=== PATIENT | male | born 1935 | race Caucasian/White ===

== ENCOUNTER 2017-12-30 17:00 | Inpatient (IN) | payer MEDICARE, OTHER ==
[2017-12-30] VITALS (201 sets, daily range): BP systolic 172; BP diastolic 80; PULSE 96; TEMP 98.3; O2SAT 86–100
[~2017-12-30] VITALS: Ht 170.2 cm; Wt 99.5 kg
[2017-12-30 17:43] LABS: BASO % 0.1 % (0.0-2.0); GRAN % 87.4 % (42.2-75.2); HEMATOCRIT 41.2 % (42.0-52.0); HEMOGLOBIN 13.6 g/dl (13.5-18.0); LYMPH # 0.8 (1.2-3.4); LYMPH % 4.9 % (20.0-51.0); MEAN CELL VOLUME 92 fl (80.0-100.0); MEAN CORPUSCULAR HEMOGLOBIN 30 pg (27.0-31.0); MEAN CORPUSCULAR HGB CONC 33 g/dl (33.0-37.0); MEAN PLATELET VOLUME 11.5 fl (7.4-10.4); MONO # 1.2 (0.1-0.6); MONO % 7.1 % (1.7-9.3); PLATELET COUNT 183 K/mm3 (130-400); RED BLOOD COUNT 4.47 M/mm3 (4.20-5.60); REDCELL DISTRIBUTION WIDTH-CV 13.3 % (11.5-14.5)
[2017-12-30] MEDS ORDERED: ZESTRIL 20MG TA20 MG PO (17:53)
[2017-12-30] MEDS ORDERED: GLUCOPHAGE500 MG/TAB PO (17:54)
[2017-12-30 17:56] LABS: ALBUMIN 3.7 gm/dL (3.5-5.0); BILIRUBIN,TOTAL 1.2 mg/dL (0.0-1.0); CREATININE, serum 2.29 mg/dL (0.66-1.25); POTASSIUM 3.9 mmol/L (3.4-5.0); TOTAL PROTEIN 7.6 gm/dL (6.4-8.2)
[2017-12-30 18:09] LABS: TROPONIN-I 0.075 ng/mL (0.000-0.034)
[2017-12-30 18:59] LABS: COLLECTION METHOD CATHETER
[2017-12-30 19:08] LABS: AMORPHOUS CRYSTAL Present /uL; MUCOUS Present /lpf; PH 5 (5-8); URINE APPEARANCE Turbid; URINE BACTERIA None Seen /hpf; URINE BILIRUBIN Negative (NEGATIVE); URINE BLOOD 3+ (NEGATIVE); URINE COLOR Amber; URINE GLUCOSE Negative (NEGATIVE); URINE KETONE Negative (NEGATIVE); URINE LEUKOCYTE ESTERASE Trace (NEGATIVE); URINE NITRATE Negative (NEGATIVE); URINE PROTEIN(semi-quant) 2+ (NEGATIVE); URINE UROBILINOGEN Negative (NEGATIVE)
[2017-12-30 19:13] LABS: ARTERIAL BLD GAS O2 SATURATION 88.7 % (92-100); ARTERIAL BLD GAS TCO2 CT 20.6; ARTERIAL BLOOD GAS HCO3 19.7 meq/L (22-26); ARTERIAL BLOOD GAS PCO2 29.2 mmHg (35-45); ARTERIAL BLOOD GAS PO2 54.6 mmHg (80-100); ARTERIAL BLOOD GAS pH 7.45 (7.35-7.45)
[2017-12-30 20:26] LABS: TSH w REFLEX 0.518 uIU/mL (0.465-4.680)
[2017-12-30] MEDS ORDERED: NEURONTIN100 MG/CAP PO (21:30)
[2017-12-30] MEDS ORDERED: PROSCAR 5MG5 MG PO (21:30)
[2017-12-30] MEDS ORDERED: ZOCOR 20MG20 MG PO (21:31)
[2017-12-30] MEDS ORDERED: FLOMAX 0.40.4 MG/CAP PO (21:31)
[2017-12-31] VITALS (316 sets, daily range): BP systolic 120–147; BP diastolic 46–77; PULSE 67–90; TEMP 98.8–100.1; O2SAT 91–100
[2017-12-31 00:27] LABS: CALCIUM 8.2 mg/dL (8.4-10.2); CREATININE, serum 1.92 mg/dL (0.66-1.25); MAGNESIUM 2.1 mg/dL (1.6-2.3); POTASSIUM 3.8 mmol/L (3.4-5.0)
[2017-12-31 05:42] LABS: BASO % 0.3 % (0.0-2.0); EOS % 0.1 % (0-4.0); GRAN # 11.1 (1.4-6.5); GRAN % 81.4 % (42.2-75.2); LYMPH # 1.3 (1.2-3.4); LYMPH % 9.3 % (20.0-51.0); MEAN CELL VOLUME 93 fl (80.0-100.0); MEAN CORPUSCULAR HGB CONC 32 g/dl (33.0-37.0); MEAN PLATELET VOLUME 11.3 fl (7.4-10.4); MONO # 1.2 (0.1-0.6); MONO % 8.5 % (1.7-9.3); PLATELET COUNT 163 K/mm3 (130-400); RED BLOOD COUNT 3.65 M/mm3 (4.20-5.60); REDCELL DISTRIBUTION WIDTH-CV 13.4 % (11.5-14.5)
[2017-12-31 05:47] LABS: HEMOGLOBIN 10.9 g/dl (13.5-18.0); MEAN CORPUSCULAR HEMOGLOBIN 30 pg (27.0-31.0)
[2017-12-31 05:56] LABS: ALBUMIN 2.7 gm/dL (3.5-5.0); BILIRUBIN,TOTAL 0.9 mg/dL (0.0-1.0); CALCIUM 7.4 mg/dL (8.4-10.2); CREATININE, serum 1.67 mg/dL (0.66-1.25); POTASSIUM 3.5 mmol/L (3.4-5.0); TOTAL PROTEIN 5.9 gm/dL (6.4-8.2)
[2018-01-01] VITALS (10 sets, daily range): BP systolic 112–149; BP diastolic 49–85; PULSE 56–106; TEMP 98.2–100.1
[2018-01-01 06:41] LABS: BASO % 0.2 % (0.0-2.0); EOS % 0.2 % (0-4.0); GRAN # 8.5 (1.4-6.5); GRAN % 80.7 % (42.2-75.2); HEMOGLOBIN 10.8 g/dl (13.5-18.0); LYMPH # 1.1 (1.2-3.4); LYMPH % 10.1 % (20.0-51.0); MEAN CELL VOLUME 91 fl (80.0-100.0); MEAN CORPUSCULAR HEMOGLOBIN 30 pg (27.0-31.0); MEAN CORPUSCULAR HGB CONC 33 g/dl (33.0-37.0); MEAN PLATELET VOLUME 11.4 fl (7.4-10.4); MONO # 0.9 (0.1-0.6); MONO % 8.4 % (1.7-9.3); PLATELET COUNT 187 K/mm3 (130-400); RED BLOOD COUNT 3.59 M/mm3 (4.20-5.60); REDCELL DISTRIBUTION WIDTH-CV 13.6 % (11.5-14.5)
[2018-01-01 06:46] LABS: HEMATOCRIT 32.6 % (42.0-52.0)
[2018-01-01 06:50] LABS: CREATININE, serum 1.24 mg/dL (0.66-1.25)
[2018-01-02 05:36] VITALS: BP 144/66; PULSE 85; TEMP 98.5
[2018-01-02 07:34] LABS: BASO # 0.1 (0.0-0.2); BASO % 0.6 % (0.0-2.0); EOS # 0.2 (0.0-0.7); EOS % 2.1 % (0-4.0); GRAN # 8.1 (1.4-6.5); GRAN % 76.9 % (42.2-75.2); LYMPH # 1.4 (1.2-3.4); LYMPH % 13.2 % (20.0-51.0); MEAN CELL VOLUME 90 fl (80.0-100.0); MEAN CORPUSCULAR HEMOGLOBIN 30 pg (27.0-31.0); MEAN CORPUSCULAR HGB CONC 33 g/dl (33.0-37.0); MEAN PLATELET VOLUME 11.4 fl (7.4-10.4); MONO # 0.7 (0.1-0.6); MONO % 6.7 % (1.7-9.3); PLATELET COUNT 190 K/mm3 (130-400); RED BLOOD COUNT 3.36 M/mm3 (4.20-5.60)
[2018-01-02 07:42] LABS: HEMATOCRIT 30.3 % (42.0-52.0)
[2018-01-02 08:01] VITALS: BP 146/67; PULSE 55; TEMP 98.2
[2018-01-02 08:52] LABS: CALCIUM 7.3 mg/dL (8.4-10.2); CREATININE, serum 1.1 mg/dL (0.66-1.25); MAGNESIUM 1.8 mg/dL (1.6-2.3)
[2018-01-02 08:54] LABS: POTASSIUM 2.9 mmol/L (3.4-5.0)
[2018-01-02] MEDS ORDERED: OMNICEF 300MG300 MG PO (09:57)
[2018-01-02] MEDS ORDERED: IPRATROPIUM BROM3 M1 IH (09:57)
[2018-01-02] MEDS ORDERED: K-DUR20 MEQ PO (09:58)
[2018-01-02] MEDS ORDERED: MAG-OX 400400 MG/TAB PO (09:58)
[2018-01-02] MEDS ORDERED: SEROQUEL 2525 MG/TAB PO (09:58)
[2018-01-02 11:05] VITALS: BP 151/63; PULSE 75; TEMP 98.5
[2018-01-02] MEDS ORDERED: TUMS500 MG PO (13:47)
[2018-01-02 14:28] VITALS: BP 151/63; PULSE 75; TEMP 98.5
== END 2018-01-02 15:40 | DRG 557 ==
LOC: COL.ER 17:00 → MEDICAL 18:44 → ICU 18:44 → MEDICAL 12-31 05:40
PROVIDERS: Emergency Medicine; Internal Medicine; Nurse Practitioner Family; Physician Assistant
DX: M62.82 Rhabdomyolysis (principal); G93.40 Encephalopathy, unspecified; J96.01 Acute respiratory failure with hypoxia; J18.9 Pneumonia, unspecified organism; N17.9 Acute kidney failure, unspecified; N39.0 Urinary tract infection, site not specified; Z66 Do not resuscitate; F03.90 Unspecified dementia, unspecified severity, without behavioral disturbance, psychotic disturbance, mood disturbance, and anxiety; I10 Essential (primary) hypertension; E78.5 Hyperlipidemia, unspecified; E11.9 Type 2 diabetes mellitus without complications; Z91.81 History of falling; E87.6 Hypokalemia; L89.319 Pressure ulcer of right buttock, unspecified stage; L89.159 Pressure ulcer of sacral region, unspecified stage
CPT/HCPCS: 99223-AI; 99231-AI; 99239; A9284; A9502; J0456; J0696; J1644; J1815; J2543; J7030; J7050

== ENCOUNTER 2018-01-08 16:44 | Emergency (ER) | payer MEDICARE ==
[~2018-01-08] VITALS: Ht 170.2 cm; Wt 90.9 kg
[~2018-01-08 16:44] MED LIST: FLOMAX 0.40.4 MG/CAP PO; GLUCOPHAGE500 MG/TAB PO; IPRATROPIUM BROM3 M1 IH; K-DUR20 MEQ PO; MAG-OX 400400 MG/TAB PO; NEURONTIN100 MG/CAP PO; OMNICEF 300MG300 MG PO; PROSCAR 5MG5 MG PO; SEROQUEL 2525 MG/TAB PO; TUMS500 MG PO; ZESTRIL 20MG TA20 MG PO; ZOCOR 20MG20 MG PO
[2018-01-08 16:49] VITALS: TEMP 97.4
[2018-01-08] MEDS ORDERED: TYLENOL SU650 MG/SUP RC (17:24)
[2018-01-08] MEDS ORDERED: DULCOLAX S10 MG/SUPP RC (17:25)
[2018-01-08] MEDS ORDERED: LASIX 20MG TABL20 MG PO (17:27)
[2018-01-08 17:29] LABS: BASO # 0.1 (0.0-0.2); BASO % 0.6 % (0.0-2.0); EOS # 0.2 (0.0-0.7); EOS % 2.2 % (0-4.0); GRAN # 5.9 (1.4-6.5); GRAN % 65.5 % (42.2-75.2); HEMATOCRIT 39.8 % (42.0-52.0); HEMOGLOBIN 12.7 g/dl (13.5-18.0); MEAN CELL VOLUME 92 fl (80.0-100.0); MEAN CORPUSCULAR HEMOGLOBIN 30 pg (27.0-31.0); MEAN CORPUSCULAR HGB CONC 32 g/dl (33.0-37.0); MEAN PLATELET VOLUME 10.2 fl (7.4-10.4); MONO # 0.7 (0.1-0.6); MONO % 7.6 % (1.7-9.3); PLATELET COUNT 440 K/mm3 (130-400); RED BLOOD COUNT 4.31 M/mm3 (4.20-5.60); REDCELL DISTRIBUTION WIDTH-CV 14.4 % (11.5-14.5)
[2018-01-08] MEDS ORDERED: K-DUR20 MEQ PO (17:30)
[2018-01-08 17:45] LABS: ALANINE AMINOTRANSFERASE 98 U/L (21-72); ALBUMIN 3.3 gm/dL (3.5-5.0); ALKALINE PHOSPHATASE 159 U/L (50-136); ANION GAP 8 mmol/L (7-16); AST,SGOT 53 U/L (15-37); BILIRUBIN,TOTAL 0.5 mg/dL (0.0-1.0); BLOOD UREA NITROGEN 18 mg/dL (9-20); CALCIUM 9.3 mg/dL (8.4-10.2); CARBON DIOXIDE 31 mmol/L (22-30); CHLORIDE 97 mmol/L (98-107); CREATININE, serum 1.29 mg/dL (0.66-1.25); GLUCOSE 122 mg/dL (74-106); POTASSIUM 4.5 mmol/L (3.4-5.0); SODIUM 136 mmol/L (137-145); TOTAL PROTEIN 6.7 gm/dL (6.4-8.2)
[2018-01-08 17:47] LABS: ACETAMINOPHEN < 10 ug/mL (10-30); ALCOHOL(ethanol),MEDICAL < 10 mg/dL; SALICYLATE < 1.0 mg/dL
[2018-01-08 18:19] LABS: COLLECTION METHOD CLEAN CATCH
[2018-01-08 18:24] LABS: PH 7 (5-8); SQUAMOUS EPITHELIAL None Seen /hpf; URINE APPEARANCE Clear; URINE BACTERIA None Seen /hpf; URINE BILIRUBIN Negative (NEGATIVE); URINE BLOOD Negative (NEGATIVE); URINE COLOR Yellow; URINE GLUCOSE Negative (NEGATIVE); URINE KETONE Negative (NEGATIVE); URINE LEUKOCYTE ESTERASE Negative (NEGATIVE); URINE NITRATE Negative (NEGATIVE); URINE PROTEIN(semi-quant) Negative (NEGATIVE); URINE RBC 0-2 /hpf; URINE UROBILINOGEN Negative (NEGATIVE)
[2018-01-08 18:53] LABS: TRICYCLIC ANTIDEPRESS URINE NEGATIVE
[2018-01-08 20:06] VITALS: BP 156/77
[2018-01-08 23:04] VITALS: PULSE 80
== END 2018-01-08 23:05 ==
LOC: COL.ER 16:44
PROVIDERS: Emergency Medicine
DX: R45.850 Homicidal ideations (principal); F03.90 Unspecified dementia, unspecified severity, without behavioral disturbance, psychotic disturbance, mood disturbance, and anxiety; I10 Essential (primary) hypertension; E11.9 Type 2 diabetes mellitus without complications; E78.5 Hyperlipidemia, unspecified; F43.10 Post-traumatic stress disorder, unspecified; Z87.448 Personal history of other diseases of urinary system; Z79.84 Long term (current) use of oral hypoglycemic drugs

== ENCOUNTER → 2018-04-25 | Outpatient (CLI) | payer MEDICARE ==
[~2018-04-25] MED LIST changes: +DULCOLAX S10 MG/SUPP RC; +LASIX 20MG TABL20 MG PO; +TYLENOL SU650 MG/SUP RC
[2018-04-25 12:44] LABS: BASO % 0.4 % (0.0-2.0); EOS # 0.3 (0.0-0.7); EOS % 2.9 % (0-4.0); GRAN # 5.7 (1.4-6.5); GRAN % 63.5 % (42.2-75.2); HEMATOCRIT 39.4 % (42.0-52.0); HEMOGLOBIN 12.4 g/dl (13.5-18.0); LYMPH # 2.4 (1.2-3.4); LYMPH % 26.2 % (20.0-51.0); MEAN CELL VOLUME 95 fl (80.0-100.0); MEAN CORPUSCULAR HEMOGLOBIN 30 pg (27.0-31.0); MEAN CORPUSCULAR HGB CONC 32 g/dl (33.0-37.0); MEAN PLATELET VOLUME 11.2 fl (7.4-10.4); MONO # 0.6 (0.1-0.6); MONO % 6.7 % (1.7-9.3); PLATELET COUNT 293 K/mm3 (130-400); RED BLOOD COUNT 4.13 M/mm3 (4.20-5.60)
[2018-04-25 13:10] LABS: ALBUMIN 3.8 gm/dL (3.5-5.0); BILIRUBIN,TOTAL 0.5 mg/dL (0.0-1.0); CALCIUM 9.5 mg/dL (8.4-10.2); CHOLESTEROL RISK RATIO 3.6; CREATININE, serum 1.11 mg/dL (0.66-1.25)
[2018-04-25 13:37] LABS: THYROID STIMULATING HORMONE 1.27 uIU/mL (0.465-4.680)
== END ==
LOC: ZCOL.LAB 11:45
PROVIDERS: Family Medicine
DX: I10 Essential (primary) hypertension (principal); E78.5 Hyperlipidemia, unspecified; E11.8 Type 2 diabetes mellitus with unspecified complications

== ENCOUNTER → 2018-07-08 | Outpatient (CLI) | payer MEDICARE ==
[2018-07-08 12:38] LABS: COLLECTION METHOD CLEAN CATCH
[2018-07-08 12:50] LABS: PH 5 (5-8); SQUAMOUS EPITHELIAL 0-2 /hpf; URINE APPEARANCE Clear; URINE BACTERIA None Seen /hpf; URINE BILIRUBIN Negative (NEGATIVE); URINE BLOOD Negative (NEGATIVE); URINE COLOR Yellow; URINE GLUCOSE Negative (NEGATIVE); URINE KETONE Negative (NEGATIVE); URINE LEUKOCYTE ESTERASE Negative (NEGATIVE); URINE NITRATE Negative (NEGATIVE); URINE PROTEIN(semi-quant) Negative (NEGATIVE); URINE RBC 0-2 /hpf; URINE UROBILINOGEN Negative (NEGATIVE); URINE WBC 0-2 /hpf
== END ==
LOC: ZCOL.LAB 12:33
PROVIDERS: Family Medicine
DX: N39.0 Urinary tract infection, site not specified (principal)

== ENCOUNTER → 2018-07-10 | Outpatient (REF) ==
[2018-07-10 13:29] LABS: CALCIUM 9.3 mg/dL (8.4-10.2); CREATININE, serum 1.41 mg/dL (0.66-1.25); POTASSIUM 4.6 mmol/L (3.4-5.0)
== END ==
LOC: ZCOL.LAB 13:09
PROVIDERS: Family Medicine
DX: I10 Essential (primary) hypertension (principal)

== ENCOUNTER → 2018-07-10 | Outpatient (CLI) | payer MEDICARE | LOC: COL.VAS 08:54 | DX: I50.30 Unspecified diastolic (congestive) heart failure (principal); I34.0 Nonrheumatic mitral (valve) insufficiency; I51.7 Cardiomegaly ==

== ENCOUNTER → 2018-08-06 | Outpatient (REF) ==
[2018-08-06 06:33] LABS: COLLECTION METHOD CLEAN CATCH
[2018-08-06 06:45] LABS: MUCOUS Present /lpf; PH 5 (5-8); SQUAMOUS EPITHELIAL 0-2 /hpf; URINE APPEARANCE Clear; URINE BACTERIA None Seen /hpf; URINE BILIRUBIN Negative (NEGATIVE); URINE BLOOD Negative (NEGATIVE); URINE COLOR Straw; URINE GLUCOSE Negative (NEGATIVE); URINE KETONE Negative (NEGATIVE); URINE LEUKOCYTE ESTERASE Negative (NEGATIVE); URINE NITRATE Negative (NEGATIVE); URINE PROTEIN(semi-quant) Negative (NEGATIVE); URINE RBC 0-2 /hpf; URINE UROBILINOGEN Negative (NEGATIVE)
== END ==
LOC: ZCOL.LAB 06:32
PROVIDERS: Family Medicine
DX: N39.0 Urinary tract infection, site not specified (principal)

== ENCOUNTER 2018-09-03 21:50 | Emergency (ER) | payer MEDICARE ==
[~2018-09-03] VITALS: Ht 170.2 cm; Wt 100.0 kg
[2018-09-03 21:52] VITALS: TEMP 96.9
[2018-09-03 22:47] LABS: BASO # 0.1 (0.0-0.2); BASO % 0.6 % (0.0-2.0); EOS # 0.2 (0.0-0.7); EOS % 2.1 % (0-4.0); GRAN # 5.4 (1.4-6.5); GRAN % 61.6 % (42.2-75.2); HEMOGLOBIN 10.9 g/dl (13.5-18.0); LYMPH # 2.3 (1.2-3.4); LYMPH % 26.8 % (20.0-51.0); MEAN CELL VOLUME 95 fl (80.0-100.0); MEAN CORPUSCULAR HEMOGLOBIN 30 pg (27.0-31.0); MEAN CORPUSCULAR HGB CONC 32 g/dl (33.0-37.0); MEAN PLATELET VOLUME 10.2 fl (7.4-10.4); MONO # 0.7 (0.1-0.6); MONO % 8.4 % (1.7-9.3); PLATELET COUNT 275 K/mm3 (130-400); RED BLOOD COUNT 3.62 M/mm3 (4.20-5.60); REDCELL DISTRIBUTION WIDTH-CV 14.1 % (11.5-14.5)
[2018-09-03 22:51] LABS: HEMATOCRIT 34.4 % (42.0-52.0)
[2018-09-03 22:53] LABS: INR 0.9 (0.8-3.0); PROTHROMBIN TIME 10.6 SECONDS (9.7-12.8)
[2018-09-03 22:55] LABS: PARTIAL THROMBOPLASTIN TIME 28.9 SECONDS (26.0-37.0)
[2018-09-03 22:59] LABS: ALANINE AMINOTRANSFERASE < 6 U/L (21-72); ALBUMIN 3.4 gm/dL (3.5-5.0); ALKALINE PHOSPHATASE 76 U/L (50-136); ANION GAP 7 mmol/L (7-16); AST,SGOT 16 U/L (15-37); BILIRUBIN,TOTAL 0.2 mg/dL (0.0-1.0); BLOOD UREA NITROGEN 25 mg/dL (9-20); C-REACTIVE PROTEIN 1.6 mg/dL (0.0-0.9); CALCIUM 8.8 mg/dL (8.4-10.2); CARBON DIOXIDE 27 mmol/L (22-30); CHLORIDE 107 mmol/L (98-107); CREATININE, serum 1.45 (0.66-1.25); GLUCOSE 120 mg/dL (74-106); POTASSIUM 4.5 mmol/L (3.4-5.0); SODIUM 141 mmol/L (137-145); TOTAL PROTEIN 6.7 gm/dL (6.4-8.2)
[2018-09-04 01:00] VITALS: BP 125/57; PULSE 59
== END 2018-09-04 01:00 | disposition home or self-care (01) ==
LOC: COL.ER 21:50
PROVIDERS: Emergency Medicine
DX: M79.89 Other specified soft tissue disorders (principal); M79.662 Pain in left lower leg; E78.5 Hyperlipidemia, unspecified; I10 Essential (primary) hypertension; E11.9 Type 2 diabetes mellitus without complications; J44.9 Chronic obstructive pulmonary disease, unspecified; Z86.73 Personal history of transient ischemic attack (TIA), and cerebral infarction without residual deficits
CPT/HCPCS: J1650

== ENCOUNTER → 2018-09-04 | Outpatient (CLI) | payer MEDICARE | LOC: COL.VAS 08:41 | DX: I82.432 Acute embolism and thrombosis of left popliteal vein (principal); I82.422 Acute embolism and thrombosis of left iliac vein; I82.412 Acute embolism and thrombosis of left femoral vein; R79.1 Abnormal coagulation profile ==

== ENCOUNTER 2018-09-06 20:21 | Emergency (ER) | payer MEDICARE ==
[~2018-09-06] VITALS: Ht 170.2 cm; Wt 100.0 kg
[2018-09-06 21:22] VITALS: BP 110/61; PULSE 52; TEMP 97.5
== END 2018-09-06 22:30 | disposition home or self-care (01) ==
LOC: COL.ER 20:21
DX: I82.4Z2 Acute embolism and thrombosis of unspecified deep veins of left distal lower extremity (principal); E11.9 Type 2 diabetes mellitus without complications; I10 Essential (primary) hypertension; F03.90 Unspecified dementia, unspecified severity, without behavioral disturbance, psychotic disturbance, mood disturbance, and anxiety; J44.9 Chronic obstructive pulmonary disease, unspecified; N40.0 Benign prostatic hyperplasia without lower urinary tract symptoms; Z86.73 Personal history of transient ischemic attack (TIA), and cerebral infarction without residual deficits; Z79.84 Long term (current) use of oral hypoglycemic drugs
CPT/HCPCS: J1650

== ENCOUNTER → 2018-10-01 | Outpatient (CLI) | payer MEDICARE ==
[2018-10-01 15:23] LABS: BASO # 0.1 (0.0-0.2); BASO % 0.7 % (0.0-2.0); EOS # 0.1 (0.0-0.7); EOS % 1.3 % (0-4.0); GRAN # 5.3 (1.4-6.5); GRAN % 63.1 % (42.2-75.2); HEMATOCRIT 42.2 % (42.0-52.0); HEMOGLOBIN 13.4 g/dl (13.5-18.0); LYMPH # 2.3 (1.2-3.4); LYMPH % 27.6 % (20.0-51.0); MEAN CELL VOLUME 97 fl (80.0-100.0); MEAN CORPUSCULAR HEMOGLOBIN 31 pg (27.0-31.0); MEAN CORPUSCULAR HGB CONC 32 g/dl (33.0-37.0); MEAN PLATELET VOLUME 11.4 fl (7.4-10.4); MONO # 0.6 (0.1-0.6); MONO % 6.8 % (1.7-9.3); PLATELET COUNT 313 K/mm3 (130-400); RED BLOOD COUNT 4.37 M/mm3 (4.20-5.60); REDCELL DISTRIBUTION WIDTH-CV 14.2 % (11.5-14.5)
[2018-10-01 15:33] LABS: CALCIUM 9.3 mg/dL (8.4-10.2); CREATININE, serum 1.31 (0.66-1.25); POTASSIUM 5.3 mmol/L (3.4-5.0)
== END ==
LOC: ZCOL.LAB 15:13
PROVIDERS: Family Medicine
DX: E78.5 Hyperlipidemia, unspecified (principal); I10 Essential (primary) hypertension

== ENCOUNTER → 2018-10-03 | Outpatient (CLI) | payer MEDICARE ==
[2018-10-03 06:50] LABS: COLLECTION METHOD CLEAN CATCH
[2018-10-03 07:00] LABS: MUCOUS Present /lpf; PH 5 (5-8); SQUAMOUS EPITHELIAL 0-2 /hpf; URINE APPEARANCE Clear; URINE BACTERIA None Seen /hpf; URINE BILIRUBIN Negative (NEGATIVE); URINE BLOOD Negative (NEGATIVE); URINE COLOR Yellow; URINE GLUCOSE Negative (NEGATIVE); URINE KETONE Negative (NEGATIVE); URINE LEUKOCYTE ESTERASE Negative (NEGATIVE); URINE NITRATE Negative (NEGATIVE); URINE PROTEIN(semi-quant) Negative (NEGATIVE); URINE RBC 0-2 /hpf; URINE UROBILINOGEN Negative (NEGATIVE)
== END ==
LOC: ZCOL.LAB 05:43
PROVIDERS: Family Medicine
DX: N39.0 Urinary tract infection, site not specified (principal)

== ENCOUNTER → 2019-05-01 | Outpatient (CLI) | payer MEDICARE, MEDICAID ==
[2019-05-01 15:26] LABS: COLLECTION METHOD CLEAN CATCH
[2019-05-01 16:03] LABS: PH 5 (5-8); SQUAMOUS EPITHELIAL 0-2 /hpf; URINE APPEARANCE Clear; URINE BACTERIA Rare /hpf; URINE BILIRUBIN Negative (NEGATIVE); URINE BLOOD Negative (NEGATIVE); URINE COLOR Yellow; URINE GLUCOSE Negative (NEGATIVE); URINE KETONE Negative (NEGATIVE); URINE LEUKOCYTE ESTERASE Trace (NEGATIVE); URINE NITRATE Negative (NEGATIVE); URINE PROTEIN(semi-quant) Negative (NEGATIVE); URINE RBC 0-2 /hpf; URINE UROBILINOGEN Negative (NEGATIVE)
== END ==
LOC: ZCOL.LAB 14:34
PROVIDERS: Family Medicine
DX: N40.0 Benign prostatic hyperplasia without lower urinary tract symptoms (principal)

== ENCOUNTER → 2019-05-16 | Outpatient (CLI) | payer MEDICARE, MEDICAID ==
[2019-05-16 16:52] LABS: COLLECTION METHOD CLEAN CATCH
[2019-05-16 17:42] LABS: PH 5 (5-8); SQUAMOUS EPITHELIAL 0-2 /hpf; URINE APPEARANCE Hazy; URINE BACTERIA None Seen /hpf; URINE BILIRUBIN Negative (NEGATIVE); URINE BLOOD Negative (NEGATIVE); URINE COLOR Yellow; URINE GLUCOSE Negative (NEGATIVE); URINE KETONE Negative (NEGATIVE); URINE LEUKOCYTE ESTERASE Trace (NEGATIVE); URINE NITRATE Negative (NEGATIVE); URINE PROTEIN(semi-quant) Negative (NEGATIVE); URINE RBC 0-2 /hpf; URINE UROBILINOGEN Negative (NEGATIVE)
== END ==
LOC: ZCOL.LAB 15:48
PROVIDERS: Family Medicine
DX: N39.0 Urinary tract infection, site not specified (principal)

== ENCOUNTER → 2019-06-03 | Outpatient (CLI) | payer MEDICARE, MEDICAID ==
[2019-06-03 09:38] LABS: CHOLESTEROL RISK RATIO 4.6
== END ==
LOC: ZCOL.LAB 09:05
PROVIDERS: Family Medicine
DX: E78.5 Hyperlipidemia, unspecified (principal)

== ENCOUNTER → 2019-06-05 | Outpatient (CLI) | payer MEDICARE, MEDICAID ==
[~2019-06-05] MED LIST changes: +ARICEPT 5MG PO; +COLACE 100100 MG/CAP PO; +FLONASEALLERGY NS; +MELATONIN1 MG PO; +MIRALAX PA17 GM/Dose PO; +PRINIVIL40 MG PO; +REMERON 15M15 MG/TA1 PO; +STOOL SOFTENER240 M1 PO; +SURFAK 240240 MG/CAP PO; +TYLENOL 325MG325 MG PO
[2019-06-05 12:07] LABS: BILIRUBIN,TOTAL 0.7 mg/dL (0.0-1.0); CALCIUM 8.9 mg/dL (8.4-10.2); CREATININE, serum 1.38 (0.66-1.25); POTASSIUM 5.1 mmol/L (3.4-5.0); TOTAL PROTEIN 7.4 gm/dL (6.4-8.2)
== END ==
LOC: ZCOL.LAB 11:39
PROVIDERS: Family Medicine
DX: E11.8 Type 2 diabetes mellitus with unspecified complications (principal)

== ENCOUNTER 2019-06-06 15:19 | Inpatient (IN) | payer MEDICARE, MEDICAID ==
[~2019-06-06] VITALS: Ht 170.2 cm; Wt 94.6 kg
[~2019-06-06 15:19] MED LIST changes: -ARICEPT 5MG PO; -COLACE 100100 MG/CAP PO; -FLONASEALLERGY NS; -MELATONIN1 MG PO; -MIRALAX PA17 GM/Dose PO; -PRINIVIL40 MG PO; -REMERON 15M15 MG/TA1 PO; -STOOL SOFTENER240 M1 PO; -SURFAK 240240 MG/CAP PO; -TYLENOL 325MG325 MG PO
[2019-06-06 16:21] LABS: BASO % 0.2 % (0.0-2.0); GRAN # 17.3 (1.4-6.5); HEMATOCRIT 45.6 % (42.0-52.0); HEMOGLOBIN 14.4 g/dl (13.5-18.0); LYMPH # 1.9 (1.2-3.4); LYMPH % 9.4 % (20.0-51.0); MEAN CELL VOLUME 94 fl (80.0-100.0); MEAN CORPUSCULAR HEMOGLOBIN 30 pg (27.0-31.0); MEAN CORPUSCULAR HGB CONC 32 g/dl (33.0-37.0); MEAN PLATELET VOLUME 10.6 fl (7.4-10.4); MONO # 1.3 (0.1-0.6); MONO % 6.1 % (1.7-9.3); PLATELET COUNT 346 K/mm3 (130-400); RED BLOOD COUNT 4.87 M/mm3 (4.20-5.60); REDCELL DISTRIBUTION WIDTH-CV 13.5 % (11.5-14.5)
[2019-06-06] MEDS ORDERED: STOOL SOFTENER240 M1 PO (16:21)
[2019-06-06] MEDS ORDERED: FLONASEALLERGY NS (16:22)
[2019-06-06 16:24] LABS: ALANINE AMINOTRANSFERASE < 6 U/L (21-72); ALBUMIN 4.2 gm/dL (3.5-5.0); ALKALINE PHOSPHATASE 92 U/L (50-136); ANION GAP 10 mmol/L (7-16); AST,SGOT 17 U/L (15-37); BILIRUBIN,TOTAL 0.5 mg/dL (0.0-1.0); BLOOD UREA NITROGEN 43 mg/dL (9-20); CALCIUM 9.2 mg/dL (8.4-10.2); CARBON DIOXIDE 27 mmol/L (22-30); CHLORIDE 106 mmol/L (98-107); CREATININE, serum 1.41 (0.66-1.25); GLUCOSE 155 mg/dL (74-106); POTASSIUM 5.3 mmol/L (3.4-5.0); SODIUM 142 mmol/L (137-145); TOTAL PROTEIN 7.9 gm/dL (6.4-8.2)
[2019-06-06 17:29] LABS: COLLECTION METHOD CLEAN CATCH
[2019-06-06 17:52] LABS: MUCOUS Present /lpf; PH 5 (5-8); SQUAMOUS EPITHELIAL 0-2 /hpf; URINE APPEARANCE Clear; URINE BACTERIA None Seen /hpf; URINE BILIRUBIN Negative (NEGATIVE); URINE BLOOD 1+ (NEGATIVE); URINE COLOR Yellow; URINE GLUCOSE Negative (NEGATIVE); URINE KETONE Negative (NEGATIVE); URINE LEUKOCYTE ESTERASE Negative (NEGATIVE); URINE NITRATE Negative (NEGATIVE); URINE PROTEIN(semi-quant) Negative (NEGATIVE); URINE RBC 0-2 /hpf; URINE UROBILINOGEN Negative (NEGATIVE)
[2019-06-06 20:56] LABS: PROTHROMBIN TIME 11.7 SECONDS (9.7-12.8)
[2019-06-06 21:13] LABS: TROPONIN-I 0.012 ng/mL (0.000-0.035)
[2019-06-06 21:14] LABS: SALICYLATE < 1.0 mg/dL
[2019-06-06 21:51] VITALS: BP 120/49; PULSE 77; TEMP 98.7
--- NOTE | 2019-06-06 22:00 | NUR ---
Admitted to room 312 on medical floor-from ER, DX pneumonia, pt confused to situation, knows his name and very pleasant to talk with-- denies that he is in pain. IV fluids started at 100cc/hr. Bed alarm on, Close to nursing station. From [facility]---called them to fax medication record-ER did not have an accurate record
[2019-06-06] MEDS ORDERED: ARICEPT 5MG PO (22:41)
[2019-06-06] MEDS ORDERED: PRINIVIL40 MG PO (22:42)
[2019-06-06] MEDS ORDERED: PROSCAR 5MG5 MG PO (22:42)
[2019-06-06] MEDS ORDERED: NEURONTIN100 MG/CAP PO (22:44)
[2019-06-06] MEDS ORDERED: COLACE 100100 MG/CAP PO (22:45)
[2019-06-06] MEDS ORDERED: GLUCOPHAGE500 MG/TAB PO (22:45)
[2019-06-06] MEDS ORDERED: MIRALAX PA17 GM/Dose PO (22:46)
[2019-06-06] MEDS ORDERED: SURFAK 240240 MG/CAP PO (22:47)
[2019-06-06] MEDS ORDERED: TYLENOL 325MG325 MG PO (22:53)
[2019-06-06] MEDS ORDERED: REMERON 15M15 MG/TA1 PO (22:55)
[2019-06-06] MEDS ORDERED: MELATONIN1 MG PO (22:55)
[2019-06-06] MEDS ORDERED: ZOCOR 20MG20 MG PO (22:56)
[2019-06-06] MEDS ORDERED: FLOMAX 0.40.4 MG/CAP PO (22:56)
[2019-06-06 23:29] VITALS: BP 102/54; PULSE 69; TEMP 98
[2019-06-07 04:20] VITALS: BP 126/60; PULSE 60; TEMP 98.2
--- NOTE | 2019-06-07 05:22 | NUR ---
Very Quiet night- has been sleeping since his admission last night, VSS, denies pain when asked, repositioned, incontinent of urine x3, IV fluids NS remain at 100cc/hr
[2019-06-07 06:24] LABS: BASO % 0.2 % (0.0-2.0); EOS # 0.3 (0.0-0.7); EOS % 2.7 % (0-4.0); GRAN # 8.4 (1.4-6.5); GRAN % 68.3 % (42.2-75.2); LYMPH # 2.6 (1.2-3.4); LYMPH % 21.3 % (20.0-51.0); MEAN CELL VOLUME 94 fl (80.0-100.0); MEAN CORPUSCULAR HGB CONC 32 g/dl (33.0-37.0); MEAN PLATELET VOLUME 10.9 fl (7.4-10.4); MONO # 0.9 (0.1-0.6); PLATELET COUNT 283 K/mm3 (130-400); RED BLOOD COUNT 3.82 M/mm3 (4.20-5.60); REDCELL DISTRIBUTION WIDTH-CV 13.9 % (11.5-14.5)
[2019-06-07 06:36] LABS: CALCIUM 8.1 mg/dL (8.4-10.2); CREATININE, serum 1.19 (0.66-1.25); POTASSIUM 4.1 mmol/L (3.4-5.0)
[2019-06-07 06:44] LABS: HEMATOCRIT 35.9 % (42.0-52.0); HEMOGLOBIN 11.3 g/dl (13.5-18.0); MEAN CORPUSCULAR HEMOGLOBIN 30 pg (27.0-31.0)
--- NOTE | 2019-06-07 07:03 | NUR ---
Rcvd report from JUSTIN Dan.
[2019-06-07 07:45] VITALS: BP 114/42; PULSE 56; TEMP 98.7
--- NOTE | 2019-06-07 07:50 | NUR ---
Pt laying in bed. Assessment completed. No breakfast as pt is currently NPO. Pt has no c/o pain or SOB. Pt is pleasant, and states he does not currently need anything. Call light within reach, bed alarm on. No further concerns at this time.
--- NOTE | 2019-06-07 12:44 | NUR ---
stopped by but nothing needed at this time.
--- NOTE | 2019-06-07 13:03 | NUR ---
Patient is a LTC resident of [facility]. Patient was unable to answer questions for assessment. SW called [facility] for family contact. EMR contact is Alyse Carrie . SW called Emr contact and her DTR and patient's niece Akua Butler answered the phone and stated that Alyse is in the ER at [facility] and is not doing well. Medications are provided through the facility. No additional concerns at this time.
[2019-06-07 18:42] VITALS: BP 1020/71; PULSE 72; TEMP 98.2
--- NOTE | 2019-06-07 19:30 | NUR ---
Pt began refusing treatment near end of shift. Pt has become increasingly confused this shift and sleeping all day. Report given to JUSTIN Dan.
[2019-06-07 19:48] VITALS: BP 111/51; PULSE 62; TEMP 98.1
--- NOTE | 2019-06-07 20:30 | NUR ---
Initial shift assessment done-Pleasantly confused- states he does not want his supper tonight- did get him to eat some pudding with his meds tonight- Incontinent of loose/liquid stool/urine--repositioned/cleaned up. IV fluids of NS at 100cc/hr to R/AC site-- IV pump constantly alarming due to patient moving arm--new IV site started with 22g to left hand.
[2019-06-07 23:18] VITALS: BP 115/44; PULSE 59; TEMP 99.1
[2019-06-08 03:30] VITALS: BP 111/75; PULSE 66; TEMP 98.1
--- NOTE | 2019-06-08 05:40 | NUR ---
Quiet night- VSS, repositioned every 2-3 hrs throughout the night- incontinent of urine x3. Did not sleep as well as previous night . Calm-pleasant, confused
[2019-06-08 06:43] LABS: BASO % 0.4 % (0.0-2.0); EOS # 0.4 (0.0-0.7); EOS % 3.8 % (0-4.0); GRAN # 6.7 (1.4-6.5); GRAN % 66.5 % (42.2-75.2); HEMATOCRIT 31.8 % (42.0-52.0); LYMPH # 2.3 (1.2-3.4); LYMPH % 23.1 % (20.0-51.0); MEAN CELL VOLUME 94 fl (80.0-100.0); MEAN CORPUSCULAR HEMOGLOBIN 30 pg (27.0-31.0); MEAN CORPUSCULAR HGB CONC 31 g/dl (33.0-37.0); MEAN PLATELET VOLUME 10.8 fl (7.4-10.4); MONO # 0.6 (0.1-0.6); MONO % 5.8 % (1.7-9.3); PLATELET COUNT 244 K/mm3 (130-400); RED BLOOD COUNT 3.38 M/mm3 (4.20-5.60); REDCELL DISTRIBUTION WIDTH-CV 13.8 % (11.5-14.5)
[2019-06-08 06:51] LABS: CALCIUM 8.1 mg/dL (8.4-10.2); CREATININE, serum 1.11 (0.66-1.25); POTASSIUM 4.2 mmol/L (3.4-5.0)
--- NOTE | 2019-06-08 07:01 | NUR ---
Report rcvd from JUSTIN Dan. Pt laying in bed watching TV. Call light within reach, Bed alarm on.
[2019-06-08 08:21] VITALS: BP 115/44; PULSE 61; TEMP 98.3
[2019-06-08 12:40] VITALS: BP 131/55; PULSE 54; TEMP 97.7
[2019-06-08 17:12] VITALS: BP 151/56; PULSE 59; TEMP 98.2
--- NOTE | 2019-06-08 18:40 | NUR ---
PT report received from Lilly ANDERSON at bedside. PT is confused and has been reported to have pulled out his IV during the dayshift. PT is in good spirits and is noted to be smiling and laughing with staff. PT requires constant supervision to reduce his risk of pulling out IV. PT shows no s/s of distress at this time. Will continue to monitor.
[2019-06-08 19:58] VITALS: BP 134/66; PULSE 58; TEMP 98.4
--- NOTE | 2019-06-08 20:10 | NUR ---
PT has required sitting by nurses station so far this shift to reduce the risk of him pulling out his IV secondary to severe dementia. This proposal writer takes Pt into PT's room for assessment. PT is compliant and does resist care but is unable to remain redirected and keeps trying to pull on his IV line. After assessment complete PT states he does not want to go to bed and so PT is escorted to the nurses station where he can remain supervised. Magazines are provided to PT for entertainment and ultimately requires 1:1 care due to his constant pulling and manipulating of his IV line. Will continue to monitor. No s/s of distress noted.
--- NOTE | 2019-06-08 22:10 | NUR ---
PT has been very restless during this shift and per dayshift report has been very restless during dayshift and was noted to pull out his IV line during dayshift. PT continues to pull on IV line and when attempted to be redirected just laughs. After multiple and unsuccessfull attempts at redirection PT was placed in mittens to reduce his risk of pulling out his IV line. PT just laughs and begins to chew on the velcro strap that secures the mittens until the is able to get his hand out at which point he immediately reaches for his IV line once again. PT is alert but is disoriented with a Hx of severe dementia. PT uses IV site for fluids and IV antibiotics. New order obtained for Ativan 0.25mg IV Now and administered per JUN. PT taken to his room for biomedical scientist and then brought back out to nurses station where he requires 1:1 care to reduce risk of self injury and/or pulling out IV. Will continue to monitor.
--- NOTE | 2019-06-08 23:00 | NUR ---
PT is noted to be more easily redirected and remains redirected much longer after the 0.25mg IV dose of ativan. PT reports that he is ready for bed and this publicity writer an COOK SHORT ORDER assist PT to bed. As PT is covered up with blankets PT states that he is "so comfortable" that he is now able to void and when asked if he needs a urinal replies that he already has urinated. This publicity writer and COOK SHORT ORDER change Pt's adult brief and perform xiomara-care. Call light within reach. Will continue to monitor.
[2019-06-08 23:42] VITALS: BP 146/40; PULSE 58; TEMP 97.9
--- NOTE | 2019-06-09 01:16 | NUR ---
PT has been resting peacefully in bed with eyes closed, IV infusing without complications, and call light remains at PT side. Will continue to monitor.
[2019-06-09 03:45] VITALS: BP 122/44; PULSE 44; TEMP 97.4
[2019-06-09 06:24] LABS: BASO # 0.1 (0.0-0.2); BASO % 0.6 % (0.0-2.0); EOS # 0.3 (0.0-0.7); EOS % 3.7 % (0-4.0); GRAN # 5.1 (1.4-6.5); GRAN % 63.9 % (42.2-75.2); LYMPH % 25.4 % (20.0-51.0); MEAN CELL VOLUME 93 fl (80.0-100.0); MEAN CORPUSCULAR HGB CONC 32 g/dl (33.0-37.0); MEAN PLATELET VOLUME 10.4 fl (7.4-10.4); MONO # 0.5 (0.1-0.6); MONO % 6.2 % (1.7-9.3); PLATELET COUNT 242 K/mm3 (130-400); RED BLOOD COUNT 3.32 M/mm3 (4.20-5.60); REDCELL DISTRIBUTION WIDTH-CV 13.5 % (11.5-14.5)
[2019-06-09 06:27] LABS: HEMOGLOBIN 9.8 g/dl (13.5-18.0); MEAN CORPUSCULAR HEMOGLOBIN 30 pg (27.0-31.0)
[2019-06-09 06:44] LABS: CREATININE, serum 0.99 (0.66-1.25); POTASSIUM 3.8 mmol/L (3.4-5.0)
[2019-06-09 07:38] VITALS: BP 134/63; PULSE 80; TEMP 98.1
--- NOTE | 2019-06-09 10:34 | NUR ---
PATIENT IS LAYING IN BED AT THIS TIME. PATIENT IS MORE AWAKE THAN HE WAS BEFORE SO SPEAK THERAPY IS WORKING WITH THE PATIENT. PATIENT STATED THAT HE IS TIRED. INCONTINENCE CARE WAS PROVIDED FOR THE PATIENT. PATIENT IS ONLY AWARE OF HIMSELF BUT NOBODY/NOTHING ELSE. AWAITING TO SEE IF PYHSICAL THERAPY WILL BE GETTING THE PATIENT UP AND OUT OF THE BED.
--- NOTE | 2019-06-09 10:57 | NUR ---
KERRY contacted and updated Amilcar at [facility]. KERRY also requested the patient's DPOA-HC. KERRY received the patient's advanced directives, via fax, from [facility]. The patient's DPOA-HC is his sister, Angie Butler (ph#[phone]). KERRY contacted the patient's sister, Angie. Angie reports that the plan is for the patient to return back to [facility] upon discharge. Anige gave SW her verbal consent for the Patient Choice Form. SW to fax updates to [facility] and will continue to follow.
--- NOTE | 2019-06-09 12:10 | NUR ---
Visit from the collating machine operator. No needs right now.
--- NOTE | 2019-06-09 17:05 | NUR ---
PATIENT WAS SEEN BY SPEECH THERAPY TODAY WITH THE RECOMMENDATION OF FOLLOWING A MECHANICAL SOFT DIET WITH NECTAR THICK LIQUIDS. PATIENT WILL HAVE A MODIFIED SWALLOW STUDY DONE ON 06/10/2019 PER THE SPEECH THERAPIST. PATIENT DID SIT UP AT THE SIDE OF THE BED TO EAT HIS LUNCH AND STOOD WITH THE ASSISTANCE OF 2 AND TOOK A COUPLE SIDE STEPS. NEW SHEETS WERE PUT ON THE BED AND PATIENT HAS BEEN CHANGED A COUPLE OF TIMES TODAY. CALL LIGHT IS WITHIN REACH. WILL REPORT OFF TO ROUTING MACHINE OPERATOR UPON ARRIVAL TO THE UNIT.
[2019-06-09 17:14] VITALS: BP 131/45; PULSE 68; TEMP 98.6
--- NOTE | 2019-06-09 18:40 | NUR ---
PT report received from Jacquelin ANDERSON at bedside. PT is resting in bed with TV on and no s/s of distress noted. PT has call light within reach and denies wants/needs at this time. Will continue to monitor.
[2019-06-09 19:58] VITALS: BP 116/43; PULSE 59; TEMP 98.5
--- NOTE | 2019-06-09 20:30 | NUR ---
PT remains in bed watching tv without complaints of pain and no s/s of distress noted. PT has call light within reach. PT has not been pulling on his IV so far this shift and has not required any redirection secondary to behaviors. PT is able to answer simple questions but at other times just smiles or laughs when spoken. Will continue to monitor.
[2019-06-10] VITALS (8 sets, daily range): BP systolic 120–156; BP diastolic 41–124; PULSE 45–66; TEMP 97.5–98.9
--- NOTE | 2019-06-10 00:45 | NUR ---
PT is peacefully watching TV when this board writer makes rounds. PT continues to leave his IV line alone and remains in a pleasant mood. Will continue to monitor. No s/s of distress or restless noted.
--- NOTE | 2019-06-10 04:21 | NUR ---
This creative services writer noted that PT was becoming more fidgety and restless. This creative services writer assessed PT's brief and noted that he had a large void. This creative services writer and ACCIDENT REPORT CLERK assisted PT into clean, dry, brief and performed xiomara-care. This creative services writer notes that PT has redness to his scrotum but PT does not complain about pain or discomfort while xiomara-care performed. After beign changed and cleaned up PT is noted to settle back down and asks for the light and the tv to be turned off so that he can sleep. Will continue to monitor.
--- NOTE | 2019-06-10 06:00 | NUR ---
Pt resting peacefully in bed at this time with no s/s of distress noted.
--- NOTE | 2019-06-10 07:15 | NUR ---
PT report given to tyler ANDERSON at bedside. PT is resting peacefully with eyes closed and no s/s of pain or distress noted.
--- NOTE | 2019-06-10 08:03 | NUR ---
Pt assessment complete. Pt is laying in bed upon entry, arouses to voice. He is oriented to person only. Pt denies any pain. Breathing is even and unlabored on RA. IVF infusing without complications. Pt incontinent of urine, pericare and bed bath provided. No needs at this time. Call light within reach. Bed alarm in place.
--- NOTE | 2019-06-10 11:14 | NUR ---
Initial visit; Patient thanked Malariologist for looking in on him, offering spiritual care and calling his home [facility] to let them know of his hospitalization.
[2019-06-10 12:27] LABS: HEMOGLOBIN 10.7 g/dl (13.5-18.0); MEAN CELL VOLUME 91 fl (80.0-100.0); MEAN CORPUSCULAR HEMOGLOBIN 30 pg (27.0-31.0); MEAN CORPUSCULAR HGB CONC 33 g/dl (33.0-37.0); MEAN PLATELET VOLUME 10.7 fl (7.4-10.4); PLATELET COUNT 189 K/mm3 (130-400); RED BLOOD COUNT 3.56 M/mm3 (4.20-5.60); REDCELL DISTRIBUTION WIDTH-CV 13.3 % (11.5-14.5)
[2019-06-10 12:30] LABS: HEMATOCRIT 32.3 % (42.0-52.0)
[2019-06-10 12:34] LABS: CALCIUM 8.2 mg/dL (8.4-10.2); CREATININE, serum 1.04 (0.66-1.25); POTASSIUM 4.1 mmol/L (3.4-5.0)
[2019-06-10 12:48] LABS: LYMPHOCYTE 31 % (20.0-51.0); NEUTROPHILS 65 % (42.0-75.2)
[2019-06-10 12:49] LABS: PLATELET ESTIMATE NORMAL (NORMAL)
[2019-06-10] MEDS ORDERED: AMOXICILLIN 8751 TAB PO (14:50)
--- NOTE | 2019-06-10 16:20 | NUR ---
The patient is to discharge today, 06/10, back to [facility] for a skilled stay. Transportation to be provided by [facility]. KERRY contacted and updated the patient's sister, Angie. Angie was in agreeance to the discharge. KERRY also explained the IM form to Angie. Angie gave KERRY her verbal consent. No additional needs at this time.
--- NOTE | 2019-06-10 16:30 | NUR ---
IV to [facility] dc'd, catheter tip intact. Pt wheeled out by [employer] employee at this time.
== END 2019-06-10 16:32 | DRG 871 ==
LOC: COL.ER 15:19 → MEDICAL 18:29
PROVIDERS: Emergency Medicine; Nurse Practitioner Family; Student in an Organized Health Care Education/Training Program; ADMIT Family Medicine
DX: A41.9 Sepsis, unspecified organism (principal); J69.0 Pneumonitis due to inhalation of food and vomit; E87.2 Acidosis; E78.5 Hyperlipidemia, unspecified; N40.0 Benign prostatic hyperplasia without lower urinary tract symptoms; F03.90 Unspecified dementia, unspecified severity, without behavioral disturbance, psychotic disturbance, mood disturbance, and anxiety; E11.22 Type 2 diabetes mellitus with diabetic chronic kidney disease; I12.9 Hypertensive chronic kidney disease with stage 1 through stage 4 chronic kidney disease, or unspecified chronic kidney disease; E87.5 Hyperkalemia; K52.9 Noninfective gastroenteritis and colitis, unspecified; R14.0 Abdominal distension (gaseous); F32.9 Major depressive disorder, single episode, unspecified; R65.20 Severe sepsis without septic shock; Z87.891 Personal history of nicotine dependence
CPT/HCPCS: 99222-AI; 99232-AI; 99239; J0295; J2060; J2543; J7030

== ENCOUNTER 2019-06-24 10:48 | Emergency (ER) | payer MEDICARE, MEDICAID ==
[~2019-06-24 10:48] MED LIST changes: +AMOXICILLIN 8751 TAB PO; +ARICEPT 5MG PO; +COLACE 100100 MG/CAP PO; +FLONASEALLERGY NS; +MELATONIN1 MG PO; +MIRALAX PA17 GM/Dose PO; +PRINIVIL40 MG PO; +REMERON 15M15 MG/TA1 PO; +STOOL SOFTENER240 M1 PO; +SURFAK 240240 MG/CAP PO; +TYLENOL 325MG325 MG PO
[2019-06-24 10:57] VITALS: TEMP 97.9
[2019-06-24 11:52] LABS: BASO # 0.1 (0.0-0.2); BASO % 0.8 % (0.0-2.0); EOS # 0.3 (0.0-0.7); EOS % 2.9 % (0-4.0); GRAN # 5.2 (1.4-6.5); GRAN % 57.3 % (42.2-75.2); HEMATOCRIT 41.4 % (42.0-52.0); HEMOGLOBIN 12.7 g/dl (13.5-18.0); LYMPH # 2.9 (1.2-3.4); MEAN CELL VOLUME 96 fl (80.0-100.0); MEAN CORPUSCULAR HEMOGLOBIN 30 pg (27.0-31.0); MEAN CORPUSCULAR HGB CONC 31 g/dl (33.0-37.0); MEAN PLATELET VOLUME 10.4 fl (7.4-10.4); MONO # 0.6 (0.1-0.6); MONO % 6.8 % (1.7-9.3); PLATELET COUNT 326 K/mm3 (130-400); RED BLOOD COUNT 4.31 M/mm3 (4.20-5.60); REDCELL DISTRIBUTION WIDTH-CV 14.6 % (11.5-14.5)
[2019-06-24 12:01] LABS: ALANINE AMINOTRANSFERASE 12 U/L (4-49); ALBUMIN 4.2 gm/dL (3.5-5.0); ALKALINE PHOSPHATASE 94 U/L (50-136); ANION GAP 8 mmol/L (7-16); AST,SGOT 17 U/L (15-37); BILIRUBIN,TOTAL 0.4 mg/dL (0.0-1.0); BLOOD UREA NITROGEN 20 mg/dL (9-20); CALCIUM 8.9 mg/dL (8.4-10.2); CARBON DIOXIDE 28 mmol/L (22-30); CHLORIDE 108 mmol/L (98-107); CREATININE, serum 1.39 (0.66-1.25); GLUCOSE 98 mg/dL (74-106); POTASSIUM 4.5 mmol/L (3.4-5.0); SODIUM 143 mmol/L (137-145); TOTAL PROTEIN 7.8 gm/dL (6.4-8.2)
[2019-06-24 12:12] LABS: TROPONIN-I < 0.012 ng/mL (0.000-0.035)
[2019-06-24 13:24] LABS: COLLECTION METHOD CLEAN CATCH
[2019-06-24 13:45] LABS: MUCOUS Present /lpf; PH 5 (5-8); SQUAMOUS EPITHELIAL 0-2 /hpf; URINE APPEARANCE Hazy; URINE BACTERIA None Seen /hpf; URINE BILIRUBIN Negative (NEGATIVE); URINE BLOOD Negative (NEGATIVE); URINE COLOR Yellow; URINE GLUCOSE Negative (NEGATIVE); URINE KETONE Negative (NEGATIVE); URINE LEUKOCYTE ESTERASE Trace (NEGATIVE); URINE NITRATE Negative (NEGATIVE); URINE PROTEIN(semi-quant) Negative (NEGATIVE); URINE RBC 0-2 /hpf; URINE UROBILINOGEN Negative (NEGATIVE)
[2019-06-24 15:56] VITALS: BP 115/57; PULSE 71
== END 2019-06-24 15:55 ==
LOC: COL.ER 10:48
PROVIDERS: Emergency Medicine
DX: R53.83 Other fatigue (principal); E11.9 Type 2 diabetes mellitus without complications; I10 Essential (primary) hypertension; E78.5 Hyperlipidemia, unspecified; F32.9 Major depressive disorder, single episode, unspecified; N40.0 Benign prostatic hyperplasia without lower urinary tract symptoms; Z79.84 Long term (current) use of oral hypoglycemic drugs; Z87.891 Personal history of nicotine dependence
CPT/HCPCS: J7030

== ENCOUNTER → 2019-08-14 | Outpatient (CLI) | payer MEDICARE, MEDICAID ==
[2019-08-14 18:25] LABS: CALCIUM 9.1 mg/dL (8.4-10.2); CREATININE, serum 1.38 (0.66-1.25); POTASSIUM 5.2 mmol/L (3.4-5.0)
== END ==
LOC: ZCOL.LAB 15:58
PROVIDERS: Emergency Medicine
DX: I12.9 Hypertensive chronic kidney disease with stage 1 through stage 4 chronic kidney disease, or unspecified chronic kidney disease (principal)

== ENCOUNTER → 2019-08-22 | Outpatient (CLI) | payer MEDICARE, MEDICAID | LOC: ZCOL.LAB 13:29 | DX: F02.81 Dementia in other diseases classified elsewhere, unspecified severity, with behavioral disturbance (principal) ==

== ENCOUNTER → 2019-09-26 | Outpatient (CLI) | payer MEDICARE, MEDICAID | LOC: COL.RAD 11:54 | DX: I82.5Z2 Chronic embolism and thrombosis of unspecified deep veins of left distal lower extremity (principal); I82.522 Chronic embolism and thrombosis of left iliac vein; I82.512 Chronic embolism and thrombosis of left femoral vein; I82.532 Chronic embolism and thrombosis of left popliteal vein ==

== ENCOUNTER → 2019-11-03 | Outpatient (CLI) | payer MEDICARE, MEDICAID ==
[2019-11-03 13:12] LABS: CALCIUM 9.1 mg/dL (8.4-10.2); CREATININE, serum 1.12 (0.66-1.25); POTASSIUM 4.6 mmol/L (3.4-5.0)
== END ==
LOC: ZCOL.LAB 11:41
PROVIDERS: Emergency Medicine
DX: E78.5 Hyperlipidemia, unspecified (principal); E11.22 Type 2 diabetes mellitus with diabetic chronic kidney disease

== ENCOUNTER → 2019-11-07 | Outpatient (CLI) | payer MEDICARE, MEDICAID ==
[2019-11-07 22:16] LABS: BASO # 0.1 (0.0-0.2); BASO % 0.8 % (0.0-2.0); EOS # 0.4 (0.0-0.7); EOS % 3.9 % (0-4.0); GRAN # 5.6 (1.4-6.5); HEMATOCRIT 39.3 % (42.0-52.0); HEMOGLOBIN 12.5 g/dl (13.5-18.0); LYMPH # 2.4 (1.2-3.4); LYMPH % 26.5 % (20.0-51.0); MEAN CELL VOLUME 89 fl (80.0-100.0); MEAN CORPUSCULAR HEMOGLOBIN 28 pg (27.0-31.0); MEAN CORPUSCULAR HGB CONC 32 g/dl (33.0-37.0); MEAN PLATELET VOLUME 10.9 fl (7.4-10.4); MONO # 0.6 (0.1-0.6); MONO % 6.5 % (1.7-9.3); PLATELET COUNT 338 K/mm3 (130-400); RED BLOOD COUNT 4.42 M/mm3 (4.20-5.60); REDCELL DISTRIBUTION WIDTH-CV 14.6 % (11.5-14.5)
== END ==
LOC: ZCOL.LAB 20:40
PROVIDERS: Emergency Medicine
DX: I12.9 Hypertensive chronic kidney disease with stage 1 through stage 4 chronic kidney disease, or unspecified chronic kidney disease (principal); N18.9 Chronic kidney disease, unspecified

== ENCOUNTER → 2019-11-19 | Outpatient (CLI) | payer MEDICARE, MEDICAID | LOC: COL.RAD 08:33 | DX: J69.0 Pneumonitis due to inhalation of food and vomit (principal); G30.9 Alzheimer's disease, unspecified; R13.12 Dysphagia, oropharyngeal phase ==

== ENCOUNTER → 2019-11-25 | Outpatient (CLI) | payer MEDICARE, MEDICAID | LOC: ZCOL.LAB 10:40 | DX: I12.9 Hypertensive chronic kidney disease with stage 1 through stage 4 chronic kidney disease, or unspecified chronic kidney disease (principal); N18.9 Chronic kidney disease, unspecified ==

== ENCOUNTER → 2020-02-18 | Outpatient (CLI) | payer MEDICARE, MEDICAID ==
[2020-02-18 12:39] LABS: CALCIUM 8.7 mg/dL (8.4-10.2); CREATININE, serum 1.07 (0.66-1.25); POTASSIUM 4.4 mmol/L (3.4-5.0)
== END ==
LOC: ZCOL.LAB 10:40
PROVIDERS: Emergency Medicine
DX: N40.0 Benign prostatic hyperplasia without lower urinary tract symptoms (principal); E11.22 Type 2 diabetes mellitus with diabetic chronic kidney disease; N18.30 Chronic kidney disease, stage 3 unspecified

== ENCOUNTER → 2020-03-24 | Outpatient (CLI) | payer MEDICARE, MEDICAID | LOC: ZCOL.LAB 15:21 | DX: F52.8 Other sexual dysfunction not due to a substance or known physiological condition (principal) ==

== ENCOUNTER → 2020-04-27 | Outpatient (CLI) | payer MEDICARE, MEDICAID | LOC: ZCOL.LAB 13:18 | DX: Z01.89 Encounter for other specified special examinations (principal) ==

== ENCOUNTER → 2020-06-30 | Outpatient (CLI) | payer MEDICARE, MEDICAID ==
[2020-06-30 13:41] LABS: ALBUMIN 3.7 gm/dL (3.5-5.0); BILIRUBIN,TOTAL 0.7 mg/dL (0.0-1.0); CALCIUM 9.1 mg/dL (8.4-10.2); CHOLESTEROL RISK RATIO 5.8; CREATININE, serum 1.28 (0.66-1.25); POTASSIUM 4.1 mmol/L (3.4-5.0); TOTAL PROTEIN 6.9 gm/dL (6.4-8.2)
== END ==
LOC: ZCOL.LAB 12:22
PROVIDERS: Emergency Medicine
DX: E78.5 Hyperlipidemia, unspecified (principal)

== ENCOUNTER → 2020-09-20 | Outpatient (CLI) | payer MEDICARE, MEDICAID ==
[2020-09-21 00:42] LABS: PH 5 (5-8); SQUAMOUS EPITHELIAL 0-2 /hpf; URINE APPEARANCE Clear; URINE BACTERIA None Seen /hpf; URINE BILIRUBIN Negative (NEGATIVE); URINE BLOOD Negative (NEGATIVE); URINE COLOR Straw; URINE GLUCOSE Negative (NEGATIVE); URINE KETONE Negative (NEGATIVE); URINE LEUKOCYTE ESTERASE Negative (NEGATIVE); URINE NITRATE Negative (NEGATIVE); URINE PROTEIN(semi-quant) Negative (NEGATIVE); URINE RBC 0-2 /hpf; URINE UROBILINOGEN Negative (NEGATIVE); URINE WBC 0-2 /hpf
[2020-09-21 16:15] LABS: COLLECTION METHOD CATHETER
== END ==
LOC: ZCOL.LAB 21:36
PROVIDERS: Emergency Medicine
DX: N39.0 Urinary tract infection, site not specified (principal)

== ENCOUNTER → 2020-09-24 | Outpatient (REF) | payer SELFPAY | LOC: ZCOL.LAB 15:04 | DX: E11.22 Type 2 diabetes mellitus with diabetic chronic kidney disease (principal) ==

== ENCOUNTER → 2020-09-24 | Outpatient (CLI) | payer MEDICARE, MEDICAID | LOC: ZCOL.LAB 14:33 | DX: E11.22 Type 2 diabetes mellitus with diabetic chronic kidney disease (principal) ==

== ENCOUNTER → 2020-11-22 | Outpatient (CLI) | payer MEDICARE, MEDICAID ==
[2020-11-22 13:23] LABS: BASO # 0.1 (0.0-0.2); BASO % 0.7 % (0.0-2.0); EOS # 0.3 (0.0-0.7); EOS % 2.7 % (0-4.0); GRAN # 6.6 (1.4-6.5); GRAN % 65.3 % (42.2-75.2); HEMATOCRIT 42.6 % (42.0-52.0); HEMOGLOBIN 12.8 g/dl (13.5-18.0); LYMPH # 2.6 (1.2-3.4); LYMPH % 25.5 % (20.0-51.0); MEAN CELL VOLUME 100 fl (80.0-100.0); MEAN CORPUSCULAR HEMOGLOBIN 30 pg (27.0-31.0); MEAN CORPUSCULAR HGB CONC 30 g/dl (33.0-37.0); MEAN PLATELET VOLUME 10.9 fl (7.4-10.4); MONO # 0.6 (0.1-0.6); MONO % 5.6 % (1.7-9.3); PLATELET COUNT 314 K/mm3 (130-400); RED BLOOD COUNT 4.27 M/mm3 (4.20-5.60); REDCELL DISTRIBUTION WIDTH-CV 13.8 % (11.5-14.5)
[2020-11-22 13:28] LABS: CALCIUM 8.9 mg/dL (8.4-10.2); CREATININE, serum 1.11 (0.66-1.25)
[2020-11-22 13:29] LABS: ALBUMIN 3.7 gm/dL (3.5-5.0); BILIRUBIN,TOTAL 0.5 mg/dL (0.0-1.0); CHOLESTEROL RISK RATIO 5.6; TOTAL PROTEIN 6.8 gm/dL (6.4-8.2)
== END ==
LOC: ZCOL.LAB 12:17
PROVIDERS: Emergency Medicine
DX: E78.5 Hyperlipidemia, unspecified (principal); E11.22 Type 2 diabetes mellitus with diabetic chronic kidney disease; Z86.711 Personal history of pulmonary embolism

== ENCOUNTER → 2021-01-12 | Outpatient (CLI) | payer MEDICARE, MEDICAID | LOC: ZCOL.LAB 09:32 | DX: E29.0 Testicular hyperfunction (principal) ==

== ENCOUNTER → 2021-02-14 | Outpatient (CLI) | payer MEDICARE, MEDICAID | LOC: ZCOL.LAB 11:41 | DX: I12.9 Hypertensive chronic kidney disease with stage 1 through stage 4 chronic kidney disease, or unspecified chronic kidney disease (principal); E11.22 Type 2 diabetes mellitus with diabetic chronic kidney disease; N18.9 Chronic kidney disease, unspecified; D51.9 Vitamin B12 deficiency anemia, unspecified; E55.9 Vitamin D deficiency, unspecified ==

== ENCOUNTER → 2021-02-14 | Outpatient (CLI) | payer MEDICARE, MEDICAID ==
[2021-02-14 22:43] LABS: BASO # 0.1 K/mm3 (0.0-0.2); BASO % 0.7 % (0.0-2.0); EOS # 0.2 K/mm3 (0.0-0.7); EOS % 2.4 % (0-4.0); GRAN # 4.1 K/mm3 (1.4-6.5); GRAN % 54.6 % (42.2-75.2); HEMATOCRIT 38.2 % (42.0-52.0); HEMOGLOBIN 11.8 g/dl (13.5-18.0); LYMPH # 2.6 K/mm3 (1.2-3.4); LYMPH % 34.7 % (20.0-51.0); MEAN CELL VOLUME 95 fl (80.0-100.0); MEAN CORPUSCULAR HEMOGLOBIN 29 pg (27.0-31.0); MEAN CORPUSCULAR HGB CONC 31 g/dl (33.0-37.0); MEAN PLATELET VOLUME 11.1 fl (7.4-10.4); MONO # 0.5 K/mm3 (0.1-0.6); MONO % 6.9 % (1.7-9.3); PLATELET COUNT 325 K/mm3 (130-400); RED BLOOD COUNT 4.01 M/mm3 (4.20-5.60); REDCELL DISTRIBUTION WIDTH-CV 14.3 % (11.5-14.5)
[2021-02-14 22:55] LABS: ALBUMIN 3.2 gm/dL (3.4-4.8); BILIRUBIN,TOTAL 0.4 mg/dL (0.2-1.2); CALCIUM 8.8 mg/dL (8.4-10.2); CHOLESTEROL RISK RATIO 5.1; CREATININE, serum 1.1 mg/dL (0.72-1.25); POTASSIUM 4.7 mmol/L (3.5-4.5); TOTAL PROTEIN 6.3 gm/dL (6.2-8.1)
[2021-02-14 23:15] LABS: THYROID STIMULATING HORMONE 0.716 uIU/mL (0.350-4.940)
== END ==
LOC: ZCOL.LAB 22:23
PROVIDERS: Family Medicine
DX: I12.9 Hypertensive chronic kidney disease with stage 1 through stage 4 chronic kidney disease, or unspecified chronic kidney disease (principal); E11.22 Type 2 diabetes mellitus with diabetic chronic kidney disease; N18.30 Chronic kidney disease, stage 3 unspecified; R94.6 Abnormal results of thyroid function studies; E55.9 Vitamin D deficiency, unspecified; D51.9 Vitamin B12 deficiency anemia, unspecified

== ENCOUNTER → 2021-02-28 | Outpatient (CLI) | payer MEDICARE, MEDICAID ==
[2021-03-01 02:32] LABS: COLLECTION METHOD CATHETER
[2021-03-01 02:37] LABS: BASO # 0.1 K/mm3 (0.0-0.2); BASO % 0.7 % (0.0-2.0); EOS # 0.2 K/mm3 (0.0-0.7); EOS % 1.6 % (0-4.0); GRAN # 6.6 K/mm3 (1.4-6.5); GRAN % 61.6 % (42.2-75.2); HEMOGLOBIN 11.3 g/dl (13.5-18.0); LYMPH % 28.4 % (20.0-51.0); MEAN CELL VOLUME 92 fl (80.0-100.0); MEAN CORPUSCULAR HEMOGLOBIN 30 pg (27.0-31.0); MEAN CORPUSCULAR HGB CONC 33 g/dl (33.0-37.0); MEAN PLATELET VOLUME 10.9 fl (7.4-10.4); MONO # 0.8 K/mm3 (0.1-0.6); MONO % 7.2 % (1.7-9.3); PLATELET COUNT 351 K/mm3 (130-400); RED BLOOD COUNT 3.78 M/mm3 (4.20-5.60); REDCELL DISTRIBUTION WIDTH-CV 13.9 % (11.5-14.5)
[2021-03-01 02:42] LABS: MUCOUS Present /lpf; PH 5 (5-8); SQUAMOUS EPITHELIAL 0-2 /hpf; URINE APPEARANCE Hazy; URINE BACTERIA None Seen /hpf; URINE BILIRUBIN Negative (NEGATIVE); URINE BLOOD Negative (NEGATIVE); URINE COLOR Yellow; URINE GLUCOSE Negative (NEGATIVE); URINE KETONE Negative (NEGATIVE); URINE LEUKOCYTE ESTERASE Negative (NEGATIVE); URINE NITRATE Negative (NEGATIVE); URINE PROTEIN(semi-quant) Negative (NEGATIVE); URINE UROBILINOGEN Negative (NEGATIVE); URINE WBC 0-2 /hpf
[2021-03-01 02:51] LABS: CALCIUM 8.3 mg/dL (8.4-10.2); CREATININE, serum 1.01 mg/dL (0.72-1.25); POTASSIUM 3.9 mmol/L (3.5-4.5)
[2021-03-01 03:12] LABS: HEMATOCRIT 34.7 % (42.0-52.0)
== END ==
LOC: ZCOL.LAB 13:18
PROVIDERS: Family Medicine
DX: N18.30 Chronic kidney disease, stage 3 unspecified (principal); Z20.822 Contact with and (suspected) exposure to COVID-19

== ENCOUNTER → 2021-03-03 | Outpatient (CLI) | payer MEDICARE, MEDICAID | LOC: ZCOL.LAB 06:25 | DX: N39.0 Urinary tract infection, site not specified (principal) ==

== ENCOUNTER → 2021-05-16 | Outpatient (CLI) | payer MEDICARE, MEDICAID ==
[~2021-05-16] MED LIST changes: +ATIVAN 1MG T1 MG/TAB PO; +ATROPINE 2 ML2 ML SL; +COMPAZINE25 MG/SUPP RC; +PROAIR HFA0.09 MG/AC IH; +ROXANOL 20MG20 MG/ML SL; +SYSTANE 0.3-0.1 EACH OP; +TRANSDERM-0.5 MG/21 TD
[2021-05-16 14:39] LABS: CALCIUM 8.4 mg/dL (8.4-10.2); CREATININE, serum 1.2 mg/dL (0.72-1.25); POTASSIUM 4.1 mmol/L (3.5-4.5)
== END ==
LOC: ZCOL.LAB 14:05
PROVIDERS: Family Medicine
DX: I12.9 Hypertensive chronic kidney disease with stage 1 through stage 4 chronic kidney disease, or unspecified chronic kidney disease (principal); N18.30 Chronic kidney disease, stage 3 unspecified

== ENCOUNTER 2021-05-30 16:25 | Observation (INO) | payer MEDICARE, MEDICAID ==
[~2021-05-30] VITALS: Ht 175.3 cm; Wt 90.9 kg
[~2021-05-30 16:25] MED LIST changes: -ATIVAN 1MG T1 MG/TAB PO; -ATROPINE 2 ML2 ML SL; -COMPAZINE25 MG/SUPP RC; -PROAIR HFA0.09 MG/AC IH; -ROXANOL 20MG20 MG/ML SL; -SYSTANE 0.3-0.1 EACH OP; -TRANSDERM-0.5 MG/21 TD
[2021-05-30 16:56] VITALS: TEMP 99.1
[2021-05-30 17:00] LABS: BASO % 0.3 % (0.0-2.0); EOS % 0.2 % (0.0-4.0); GRAN # 7.1 K/mm3 (1.4-6.5); GRAN % 62.5 % (42.2-75.2); HEMATOCRIT 46.9 % (42.0-52.0); HEMOGLOBIN 14.2 g/dl (13.5-18.0); LYMPH # 3.5 K/mm3 (1.2-3.4); LYMPH % 31.2 % (20.0-51.0); MEAN CELL VOLUME 96 fl (80.0-100.0); MEAN CORPUSCULAR HEMOGLOBIN 29 pg (27-31); MEAN CORPUSCULAR HGB CONC 30 g/dl (33.0-37.0); MEAN PLATELET VOLUME 11.7 fl (7.4-10.4); MONO # 0.6 K/mm3 (0.1-0.6); PLATELET COUNT 268 K/mm3 (130-400); REDCELL DISTRIBUTION WIDTH-CV 15.5 % (11.5-14.5)
[2021-05-30 17:19] LABS: INR 1.5 (0.8-3.0); PROTHROMBIN TIME 16.3 SECONDS (9.7-12.8)
[2021-05-30 17:21] LABS: PARTIAL THROMBOPLASTIN TIME 33.4 SECONDS (26.0-37.0)
[2021-05-30 17:26] LABS: ALBUMIN 3.2 gm/dL (3.4-4.8); BILIRUBIN,TOTAL 0.6 mg/dL (0.2-1.2); CALCIUM 9.2 mg/dL (8.4-10.2); CREATININE, serum 6.26 mg/dL (0.72-1.25); POTASSIUM 4.9 mmol/L (3.5-4.5); TOTAL PROTEIN 8.4 gm/dL (6.2-8.1)
[2021-05-30 17:32] LABS: COLLECTION METHOD CLEAN CATCH
[2021-05-30 17:38] LABS: TROPONIN-I 0.103 ng/mL (0.00-0.033)
[2021-05-30 18:07] LABS: GRANULAR CAST >12 /lpf (0); MUCOUS Present (NOT PRESENT); PH 5 (5-8); SQUAMOUS EPITHELIAL 0-2 /hpf (0-10); URINE APPEARANCE Cloudy (CLEAR/HAZY); URINE BACTERIA None Seen /hpf (NONE SEEN); URINE BILIRUBIN Negative (NEGATIVE); URINE BLOOD 1+ (NEGATIVE); URINE COLOR Yellow (YELLOW); URINE GLUCOSE Negative (NEGATIVE); URINE KETONE Negative (NEGATIVE); URINE LEUKOCYTE ESTERASE Negative (NEGATIVE); URINE NITRATE Negative (NEGATIVE); URINE PROTEIN(semi-quant) Negative (NEGATIVE); URINE RBC 0-2 /hpf (0-2); URINE UROBILINOGEN Negative (NEGATIVE)
[2021-05-31] MEDS ORDERED: PROAIR HFA0.09 MG/AC IH (11:04)
[2021-05-31] MEDS ORDERED: SYSTANE 0.3-0.1 EACH OP (11:05)
[2021-05-31] MEDS ORDERED: COMPAZINE25 MG/SUPP RC (11:05)
[2021-05-31] MEDS ORDERED: DULCOLAX S10 MG/SUPP RC (11:05)
[2021-05-31] MEDS ORDERED: ATROPINE 2 ML2 ML SL (11:06)
[2021-05-31] MEDS ORDERED: ROXANOL 20MG20 MG/ML SL (11:09)
[2021-05-31] MEDS ORDERED: ATIVAN 1MG T1 MG/TAB PO (11:09)
[2021-05-31] MEDS ORDERED: TRANSDERM-0.5 MG/21 TD (11:10)
[2021-05-31 11:29] VITALS: BP 90/57; PULSE 77
--- NOTE | 2021-05-31 16:05 | NUR ---
Package Sealer Machine was notified that patient is on comfort care and needs to return to his nursing facility, [facility]. KERRY contacted patient's nephew, Wai who is agreeable to patient returning to [facility] on comfort care. Wai advised he believes he is DPOA-HC. Patient states it used to be his mother, Angie however she was having difficulty managing the stress of being patient's DPOA-HC. KERRY advised Wai that the DPOA-HC paperwork in EMR designates [facility]. SW to follow up with [facility] on DPOA-HC. KERRY contacted Aurelia at [facility] who advised they will accept patient back on comfort care and will provide comfort care services for patient. Aurelia advised the DPOA-HC they have on file designates [facility]. KERRY contacted Wai and explained that without having a physical copy of DPOA-HC that designates him, legally we have to utilize the DPOA-HC we have, which designates [facility]. KERRY requested to speak with Angie as on a previous call, Wai advised Angie is his mother and he was currently with her. Wai refused to give Angie the phone to speak with KERRY as she was "taking a nap". Wai then began asking KERRY what happens if he refuses to let KERRY speak with Angie and what would happen if the designated DPOA-HC was . KERRY asked Wai if Angie was and he stated no, that he was just asking questions. KERRY again explained that she would need to speak with [facility] to proceed as she is DPOA-HC. Wai again refused and said he would call KERRY back once Angie woke up. Wai did return KERRY's call and put Angie on the phone. KERRY reviewed plan of returning to [facility] on comfort care. KERRY advised staff at [facility] would provide comfort cares. Angie stated she is agreeable with this plan. KERRY also reviewed [employer] form with both Wai and Angie. Wai verbalized understanding and provided verbal consent as signature. KERRY collaborated with JUSTIN Allen who advised patient is not safe to go by wheelchair transport and will require EMS transport. KERRY contacted [facility] and arranged for transportation. KERRY notified WaiKeyonna and Aurelia at [facility] when patient was in route to return to [facility]. KERRY faxed discharge orders to [facility]. Patient discharged to [facility] on comfort care.
== END 2021-05-31 18:00 ==
LOC: COL.ER 16:25 → INPTSU 18:51
PROVIDERS: Emergency Medicine; ADMIT Student in an Organized Health Care Education/Training Program
DX: G93.49 Other encephalopathy (principal); E11.22 Type 2 diabetes mellitus with diabetic chronic kidney disease; I12.9 Hypertensive chronic kidney disease with stage 1 through stage 4 chronic kidney disease, or unspecified chronic kidney disease; N17.9 Acute kidney failure, unspecified; N18.9 Chronic kidney disease, unspecified; E87.5 Hyperkalemia; E87.0 Hyperosmolality and hypernatremia; E87.8 Other disorders of electrolyte and fluid balance, not elsewhere classified; E87.2 Acidosis; D72.829 Elevated white blood cell count, unspecified; I95.9 Hypotension, unspecified; I21.4 Non-ST elevation (NSTEMI) myocardial infarction; G81.14 Spastic hemiplegia affecting left nondominant side; F03.90 Unspecified dementia, unspecified severity, without behavioral disturbance, psychotic disturbance, mood disturbance, and anxiety; Z66 Do not resuscitate; Z51.5 Encounter for palliative care
CPT/HCPCS: J2060; J2270; J2543; J7030

== ENCOUNTER → 2021-05-30 | Outpatient (CLI) | payer MEDICARE, MEDICAID ==
[2021-05-30 10:50] LABS: BASO % 0.3 % (0.0-2.0); EOS # 0.1 K/mm3 (0.0-0.7); EOS % 0.8 % (0.0-4.0); GRAN # 5.8 K/mm3 (1.4-6.5); GRAN % 65.2 % (42.2-75.2); HEMATOCRIT 40.4 % (42.0-52.0); HEMOGLOBIN 12.5 g/dl (13.5-18.0); LYMPH # 2.4 K/mm3 (1.2-3.4); LYMPH % 26.5 % (20.0-51.0); MEAN CELL VOLUME 95 fl (80.0-100.0); MEAN CORPUSCULAR HEMOGLOBIN 29 pg (27-31); MEAN CORPUSCULAR HGB CONC 31 g/dl (33.0-37.0); MEAN PLATELET VOLUME 11.7 fl (7.4-10.4); MONO # 0.6 K/mm3 (0.1-0.6); MONO % 6.4 % (1.7-9.3); PLATELET COUNT 237 K/mm3 (130-400); RED BLOOD COUNT 4.25 M/mm3 (4.20-5.60); REDCELL DISTRIBUTION WIDTH-CV 15.3 % (11.5-14.5)
[2021-05-30 11:04] LABS: ALBUMIN 2.9 gm/dL (3.4-4.8); BILIRUBIN,TOTAL 0.5 mg/dL (0.2-1.2); CALCIUM 8.1 mg/dL (8.4-10.2); CREATININE, serum 5.11 mg/dL (0.72-1.25); POTASSIUM 4.4 mmol/L (3.5-4.5); TOTAL PROTEIN 6.3 gm/dL (6.2-8.1)
== END ==
LOC: ZCOL.LAB 10:26
PROVIDERS: Family Medicine
DX: E78.5 Hyperlipidemia, unspecified (principal); N18.30 Chronic kidney disease, stage 3 unspecified